=== PATIENT | male | born 1960 | race Caucasian/White ===

== ENCOUNTER → 2016-06-26 | Outpatient (CLI) | payer OTHER ==
[2016-06-26 10:28] LABS: HEMOGLOBIN 15.3 gm/dl (14.0-17.5); RED BLOOD COUNT 4.7 M/UL (4.20-5.50); WHITE BLOOD COUNT 19.7 K/UL (4.5-11.0)
[2016-06-26 10:48] LABS: BUN/CREATININE RATIO 20 (0-10)
== END ==
LOC: LAB 09:33
PROVIDERS: Emergency Medicine
DX: J44.1 Chronic obstructive pulmonary disease with (acute) exacerbation (principal); E11.69 Type 2 diabetes mellitus with other specified complication; E78.2 Mixed hyperlipidemia; I10 Essential (primary) hypertension; R53.1 Weakness
CPT/HCPCS: 36415; 71020; 80053; 80061; 83036; 83704; 83735; 84484; 85027; 85610; 85730; 93005

== ENCOUNTER → 2016-07-02 | Outpatient (CLI) | payer OTHER ==
[2016-07-02 12:50] LABS: BUN/CREATININE RATIO 13 (0-10)
== END ==
LOC: LAB 11:57
PROVIDERS: Internal Medicine Cardiovascular Disease
DX: I21.4 Non-ST elevation (NSTEMI) myocardial infarction (principal); R77.8 Other specified abnormalities of plasma proteins; R94.31 Abnormal electrocardiogram [ECG] [EKG]
CPT/HCPCS: 36415; 80048; 84484; 93005

== ENCOUNTER → 2020-05-16 | Outpatient (CLI) | payer OTHER ==
[~2020-05-16] MED LIST: DOXYCYCLINE MO100 MG PO
== END ==
LOC: RAD 08:27
DX: M54.2 Cervicalgia (principal); M54.9 Dorsalgia, unspecified; R05 Cough; R91.8 Other nonspecific abnormal finding of lung field; M47.816 Spondylosis without myelopathy or radiculopathy, lumbar region
CPT/HCPCS: 71046; 72050; 72072; 72110